=== PATIENT | female | born 1990 | race Caucasian/White ===

== ENCOUNTER 2023-02-04 21:32 | Emergency (ER) | payer OTHER ==
[~2023-02-04] VITALS: Ht 172.7 cm; Wt 68.2 kg
[2023-02-04] VITALS (10 sets, daily range): BP systolic 88–120; BP diastolic 45–70
[~2023-02-04 21:32] MED LIST: AMOXICILLIN875 MG OR; AUGMENTIN500TAB PO; AUGMENTIN875TAB PO; BACTRIM DS1 TAB PO; BLEPH-1010 % OD; CIPROFLOXACN500 MG PO; CONCEPT OB PO; HYDROXYZ HCL25 MG OR; IBUPROFEN600 MG PO; IMODIUM2 MG PO; IRON325 M1 PO; MEDDOSEPAK OR; NO HOME MEDS; ONDANSETRON4 MG PO; PRENATAL1 TA1 PO; PYRIDIUM200 MG PO; REGLAN10 MG OR; TRAMADOL HCL50 MG PO; TYLENOL 325MG SUP PO; ULTRAM50 M1 PO; ZOFRAN ODT4 MG PO; ZOFRAN ODT8 MG PO; ZOFRAN4 MG/TAB PO
[2023-02-04 22:05] LABS: EOS% 3.3 % (0-8); HEMATOCRIT 36.1 % (37.0-47.0); LYMPH% 42.3 % (15-41); MEAN CELL VOLUME 92.8 fL CALC (80.0-100.0); MEAN CORPUSCULAR HGB 30.8 pG CALC (26.0-32.0); MEAN CORPUSCULAR HGB CONC 33.2 g/dL CAL (32.0-36.0); MONO% 7.8 % (2-13); NEUT# 3.11 thou/uL (2.00-7.15); NEUT% 46.6 % (42-76); RED BLOOD COUNT 3.89 mill/uL (4.20-5.60); RED CELL DISTRI WIDTH 11.5 % (11.5-15.5)
[2023-02-04 22:25] LABS: D-DIMER 0.17 mg/L (0.19-0.60)
[2023-02-04 22:28] LABS: ACT PARTIAL THROMBO TIME 22.7 SECONDS (20.0-32.5); PROTHROMBIN TIME 10.2 SECONDS (9.0-12.5)
[2023-02-05] VITALS (15 sets, daily range): BP systolic 78–112; BP diastolic 43–59
== END 2023-02-05 02:45 | disposition home or self-care (01) ==
LOC: ED 21:32
PROVIDERS: Family Medicine
DX: R07.89 Other chest pain (principal); F41.9 Anxiety disorder, unspecified; F17.290 Nicotine dependence, other tobacco product, uncomplicated
CPT/HCPCS: J2060